=== PATIENT | male | born 1995 | race African-American/Black ===

== ENCOUNTER 2018-06-29 21:29 | Emergency (ER) | payer OTHER | END 2018-06-30 05:01 | disposition home or self-care (01) | LOC: FTE 21:29 | DX: S89.91XA Unspecified injury of right lower leg, initial encounter (principal); J45.909 Unspecified asthma, uncomplicated; W50.0XXA Accidental hit or strike by another person, initial encounter; Y92.310 Basketball court as the place of occurrence of the external cause | CPT/HCPCS: 99282; 99282-25 ==